=== PATIENT | male | born 1990 | race Caucasian/White ===

== ENCOUNTER 2018-04-28 18:32 | Emergency (ER) | payer BC, OTHER ==
[~2018-04-28] VITALS: Ht 177.8 cm; Wt 73.0 kg
[2018-04-28 20:32] LABS: TROPONIN I < 0.015 ng/mL (0.000-0.045)
[2018-04-28 20:52] VITALS: BP 105/68
== END 2018-04-28 21:12 | disposition home or self-care (01) ==
LOC: ED 21:01
DX: R07.89 Other chest pain (principal); Z90.49 Acquired absence of other specified parts of digestive tract
CPT/HCPCS: 36415; 71046; 84484; 93005; 99285